=== PATIENT | female | born 1935 | race Caucasian/White ===

== ENCOUNTER 2022-06-11 18:06 | Emergency (ER) | payer OTHER ==
[~2022-06-11] VITALS: Ht 152.4 cm; Wt 45.4 kg
[2022-06-11 18:12] VITALS: BP_SYST 132
--- NOTE | 2022-06-11 20:23 | NUR ---
Patient to ER bed 02 to gown for evaluation. Side rails up. Report given to LUCIE KHALIL
--- NOTE | 2022-06-11 21:35 | NUR ---
[place] [facility] [place]. Per pt, she does not remember falling or hitting head. Denies any pain/discomfort. Pt appears A/O x 2. Does not appear in any distress/discomfort. VSS at this time. Breathing adequately on RA.
--- NOTE | 2022-06-11 22:26 | NUR ---
Spoke to Carlos (SON) and updated him on POC.
[2022-06-11] MEDS ORDERED: cloNIDine HCL 0.1 MG TABLET PO ONE (23:00)
--- NOTE | 2022-06-11 23:00 | NUR ---
MD Le made aware of elevated SBP of 181; new orders received.
--- NOTE | 2022-06-11 23:34 | NUR ---
HTN medication noted effective. SBP decreased; MD Le aware and okay'd discharge.
--- NOTE | 2022-06-11 23:35 | NUR ---
Patient/Son Carlos given written and verbal discharge instructions and verbalizes understanding. ER MD Le discussed with patient the results and treatment provided. Patient in stable condition. ID arm band removed. Patient educated on pain management and to follow up with PMD. Pain Scale 0/10. Opportunity for questions provided and answered.
[2022-06-11 23:45] VITALS: BP_SYST 172
== END 2022-06-11 23:45 | disposition home or self-care (01) ==
LOC: SED 18:06
DX: S09.90XA Unspecified injury of head, initial encounter (principal); R03.0 Elevated blood-pressure reading, without diagnosis of hypertension; Z79.899 Other long term (current) drug therapy; W18.30XA Fall on same level, unspecified, initial encounter; Y93.89 Activity, other specified; Y92.129 Unspecified place in nursing home as the place of occurrence of the external cause; Y99.8 Other external cause status
CPT/HCPCS: 70450-TC; 72125-TC; 72192-TC; 76376; 99284